=== PATIENT | male | born 1955 | race Caucasian/White ===

== ENCOUNTER 2021-06-10 01:51 | Emergency (ER) | payer OTHER ==
[~2021-06-10] VITALS: Ht 177.8 cm; Wt 68.0 kg
--- NOTE | ~2021-06-10 | EMS ---
[address] [address] EMS Patient Care Report Name: SEDRICK BRUCE Room #: DEP DEANDRE Velasquez#: [id number] Admission: 06/10/21 Attend Phys: Discharge: 06/10/21 Date of : 59 Report #: [id number] THIS REPORT FOR: //name// Report Transmitted: 06/10/2021 06:38 EMS Care Summary [facility] Incident [id number] @ 06/10/2021 01:11 Incident Location [address] [place], [place] [id number] Patient SEDRICK BRUCE Male, 65 Years 1955 Patient Address [address] [place] [id number] Patient History Diabetes,Pancreatitis,Neuropathy, Patient Allergies No known allergies, Patient Medications Lantus, Novolog, Gabapentin, Alprazolam, Creon, Chief Complaint Head laceration and buttock pain Disposition Transported No Lights/[place] Dispatch Reason Falls Transported To [facility] Narrative D- [id number] is dispatched for a fall. C- EMS arrives to find a 65 year old male laying on his left side on the floor of the entry way into the house, with blood noted in the hair to the back of [facility] [address] [place] [address] EMS Patient Care Report Name: SEDRICK BRUCE Room #: DEP ER Ron#: [id number] Admission: 06/10/21 Attend Phys: Discharge: 06/10/21 Date of : 59 Report #: [id number] his head. The house is noted to be cluttered and unkempt. There is a wooden gate across the staircase, approximately 3 steps from the bottom. The pt is answering questions appropriately. The pt has a CC buttock/tailbone pain. H- The pts family members are on scene and report that the pt was coming down the stairs when he tripped over the gate and fell down 2-3 steps onto the floor. The family reports that the pt did not lose consciousness, but the pt had a brief period of blurry vision and confusion. The pt denies feeling dizzy prior to falling. The pt reports that he "tripped over" the gate on the stairs and fell to the floor. On arrival of EMS, the pt denies any blurry vision or headache. The pt denies any neck or back pain. The pt complains of posterior head pain and buttock pain. A- See assessment tab Tx- Vitals T- The pt is ambulatory, he is assisted and secured to the stretcher after a physical assessment and bandaging of his head wound. Once secured, he is moved to the ambulance for transport to the nearest ER. The pt only complains of buttock pain while en route. The pt remained without change in complaint and his disposition did not change while en route. The pt is transferred to public health staff nurse at [facility] to room 12. Initial Vitals @01:44P: 98,BP: 132/86,SpO2: 97, @01:34P: 95,R: 13,BP: 142/85,Pain: 2/10,GCS: 15,Glucose: 426,SpO2: 97,Revised Trauma: 12,NC Suspected: false @PTAR: 12,BP: 112/64,GCS: 15,Temp: 97.5F,SpO2: 75,Revised Trauma: 12, Impression Injury of Head Procedures @01:20 ALS Assessment Response: UnchangedSucceeded @01:35 3-Lead ECG Response: UnchangedSucceeded @01:36 Surgical Mask on Patient Response: Unchanged Timeline CONFERENCE CONCIERGE,BP: 112/64 M,PULSE: ,RR: 12 R,SPO2: 75 Ox,ETCO2: ,BG: ,PAIN: ,GCS: 15, 01:09,Call Received 01:09,Psap Call 01:11,Dispatched 01:11,En Route [facility] [address] [place] [address] EMS Patient Care Report Name: SEDRICK BRUCE Room #: DEP Ron#: [id number] Admission: 06/10/21 Attend Phys: Discharge: 06/10/21 Date of : 59 Report #: [id number] 01:17,On Scene 01:18,At Patient 01:20,ALS Assessment,Response: UnchangedSucceeded, 01:33,Depart Scene 01:34,BP: 142/85 M,PULSE: 95,RR: 13 R,SPO2: 97 Ox,ETCO2: ,B,PAIN: 2,GCS: 15, 01:35,3-Lead ECG,Response: UnchangedSucceeded, 01:36,Surgical Mask on Patient,Response: Unchanged 01:44,BP: 132/86 M,PULSE: 98,RR: R,SPO2: 97 Ox,ETCO2: ,BG: ,PAIN: ,GCS: , 01:45,At Destination 02:20,Call Closed Disclaimer [email or web address] Copyright 2020 [employer] This EMS Care Summary contains data elements from the applicable legal record (which may be displayed differently). It is designed to provide pertinent information for the following purposes: continuity of care, clinical quality, and state data reporting. The complete legal record is available to ED staff and administrators of the receiving hospital in [employer] Patient Tracker. All data is provided "as is."
[2021-06-10 02:42] LABS: EOSINOPHILS 1.9 % (0.0-3.0); HEMATOCRIT 42.9 % (42.0-52.0); HEMOGLOBIN 14.1 gm/dL (14.0-18.0); LYMPHOCYTES 31.7 % (24.0-44.0); MCH 30.7 pg (26.0-34.0); MCV 93.1 fL (80.0-100.0); PLATELET COUNT 153 thou/uL (150-400); POLYS 55.4 % (36.0-66.0); RDW 14.3 % (10.5-14.5); WBC 5.5 thou/uL (4.0-11.0)
[2021-06-10 03:30] LABS: ALBUMIN 3.3 g/dL (3.4-5.0); CALCIUM 8.8 mg/dL (8.5-10.1); POTASSIUM 4.6 mmol/L (3.5-5.1); TOTAL BILIRUBIN 0.5 mg/dL (0.2-1.0); TOTAL PROTEIN 7.3 g/dL (6.4-8.2)
[2021-06-10 05:47] VITALS: BP 155/94
== END 2021-06-10 05:48 | disposition short-term general hospital (02) ==
LOC: ER 01:51
PROVIDERS: Emergency Medicine
DX: S06.5X9A Traumatic subdural hemorrhage with loss of consciousness of unspecified duration, initial encounter (principal); Z20.822 Contact with and (suspected) exposure to COVID-19; S06.6X9A Traumatic subarachnoid hemorrhage with loss of consciousness of unspecified duration, initial encounter; S01.01XA Laceration without foreign body of scalp, initial encounter; S51.011A Laceration without foreign body of right elbow, initial encounter; S20.224A Contusion of middle back wall of thorax, initial encounter; S06.9X9A Unspecified intracranial injury with loss of consciousness of unspecified duration, initial encounter; E11.65 Type 2 diabetes mellitus with hyperglycemia; W10.9XXA Fall (on) (from) unspecified stairs and steps, initial encounter; Y93.89 Activity, other specified; Y92.89 Other specified places as the place of occurrence of the external cause; Y99.8 Other external cause status